=== PATIENT | female | born 2005 | race Caucasian/White ===

== ENCOUNTER 2024-05-06 03:55 | Emergency (ER) | payer SELFPAY ==
[2024-05-06 04:37] LABS: BILIRUBIN,URINE NEGATIVE (NEGATIVE); GLUCOSE,URINE NORMAL (NORMAL); KETONES,URINE NEGATIVE (NEGATIVE); LEUKOCYTE ESTERASE,URINE NEGATIVE (NEGATIVE); NITRITE,URINE NEGATIVE (NEGATIVE); OCCULT BLOOD,URINE NEGATIVE (NEGATIVE); PROTEIN,URINE NEGATIVE (NEGATIVE); UROBILINOGEN,URINE NORMAL (NEGATIVE)
[2024-05-06 04:39] LABS: BLOOD UREA NITROGEN,BUN 11 mg/dL (7-18); BUN/CREATININE RATIO 15.7 (9-20); CALCIUM 8.8 mg/dL (8.2-10.1); CARBON DIOXIDE,CO2 28 mmol/L (21-32); CHLORIDE,CL 107 mmol/L (100-110); CREATININE 0.7 mg/dL (0.55-1.02); EST CRCL DRUG DOSING (CG) 97.54 mL/min; ESTIMATED GFR 128 mL/min (>60); GLUCOSE RANDOM 86 mg/dL (80-116); POTASSIUM,K 3.6 mmol/L (3.5-5.3); SODIUM,NA 142 mmol/L (135-145)
[2024-05-06 04:40] LABS: BASOPHILS PERCENT AUTO 0.4 % (0.2-1.5); EOSINOPHILS ABSOLUTE AUTO 0.1 x10-3/uL (0.0-0.8); EOSINOPHILS PERCENT AUTO 1.4 % (0.6-8.1); HEMATOCRIT 38.5 % (34.2-48.2); HEMOGLOBIN 12.9 g/dL (11.4-15.5); LYMPHOCYTES ABSOLUTE AUTO 3.6 x10-3/uL (1.0-4.4); LYMPHOCYTES PERCENT AUTO 34.8 % (18.4-52.1); MEAN CORPUSCULAR HEMOGLOBIN 28.1 pg (23.9-33.9); MEAN CORPUSCULAR HGB CONC 33.6 g/dL (31.9-34.8); MEAN CORPUSCULAR VOLUME 83.4 fL (76.7-100.5); MEAN PLATELET VOLUME 7.5 fL (7.1-12.4); MONOCYTES ABSOLUTE AUTO 1.2 x10-3/uL (0.3-1.0); MONOCYTES PERCENT AUTO 11.4 % (4.4-15.7); NEUTROPHILS ABSOLUTE AUTO 5.3 x10-3/uL (1.5-6.3); PLATELET COUNT,PLT 384 x10(3)uL (151-488); RED BLOOD CELL COUNT 4.61 x10(6)uL (3.60-5.20); RED CELL DISTRIBUTION WIDTH 14.7 % (12.3-16.5); WHITE BLOOD CELL COUNT,WBC 10.2 x10-3/uL (3.0-10.3)
[2024-05-06 04:41] LABS: AMORPHOUS SEDIMENT,URINE MODERATE; APPEARANCE,URINE SLIGHTLY CLOUDY (CLEAR); BACTERIA,URINE FEW (NS); COLOR,URINE YELLOW (YELLOW); RBC,URINE 0-5 (0-5); SQUAMOUS EPITHELIAL CELLS,UR MODERATE (NS,R,O); WBC,URINE 0-5 (0-5)
[2024-05-06 04:45] LABS: A/G RATIO 0.8; ALANINE AMINOTRANSFERASE,ALT 15 U/L (12-36); ALBUMIN 3.2 g/dL (3.2-4.5); ALKALINE PHOSPHATASE 98 IU/L (56-112); ASPARTATE AMNIOTRANSFERASE,AST 10 IU/L (5-25); BILIRUBIN TOTAL 0.2 mg/dL (0.1-1.2); PROTEIN TOTAL,TP 7.2 g/dL (6.0-8.0)
[2024-05-06] MEDS: Iopamidol 755 Mg/ML 100 ML Bottle IV ONE (05:00)
[2024-05-06] MEDS: Alum Hydroxide/Mag Hydroxide 15 ML, Lidocaine 2% 15 ML PO ONE (05:45)
== END 2024-05-06 06:14 | disposition home or self-care (01) ==
LOC: FB.ED 03:55
DX: K21.9 Gastro-esophageal reflux disease without esophagitis (principal)
CPT/HCPCS: 74177; 80053; 81001; 81025; 85025; 99284; A9270; Q9967